=== PATIENT | female | born 1970 | race Caucasian/White ===

== ENCOUNTER → 2021-03-05 08:44 | Outpatient (BNVA) | payer OTHER, MEDICAID, SELFPAY | PROVIDERS: Family Provider Nurse Practitioner; PCP Family Medicine; Visit Provider Internal Medicine Rheumatology | DX: M79.7 Fibromyalgia (principal); M19.90 Unspecified osteoarthritis, unspecified site; R76.8 Other specified abnormal immunological findings in serum; Z79.899 Other long term (current) drug therapy; Z11.59 Encounter for screening for other viral diseases; Z11.1 Encounter for screening for respiratory tuberculosis; E03.9 Hypothyroidism, unspecified; E55.9 Vitamin D deficiency, unspecified | CPT/HCPCS: 99204 ==

== ENCOUNTER 2021-03-05 10:31 | Outpatient (CLI) | payer OTHER, SELFPAY ==
[2021-03-05 11:12] LABS: Bilirubin Urine Neg (Negative); Blood Urine Neg (Negative); Glucose Urine UA Norm (Normal); Ketones Urine Negative (Negative); Leukocyte Esterase Urine Negative (Negative); Nitrate Urine Negative (Negative); Protein Urine Neg (Negative); Urine Appearance Clear (CLEAR); Urine Color Yellow (Yellow); Urobilinogen Urine Norm (Negative); pH Urine 7 (5-7)
[2021-03-05 11:17] LABS: Add Urine Culture? No; Bacteria Urine TRACE /hpf; Squamous Epithelial Cell Urine 0-4 /hpf (0-5)
[2021-03-05 12:02] LABS: Urine Creatinine 69 mg/dL (28-217); Urine Protein Random 4 mg/dL
[2021-03-05 12:39] LABS: Hepatitis B Core AB, Total Non-Reactive (Nonreactive); Hepatitis B Surface Antigen Non-Reactive (Nonreactive); Hepatitis C Virus Antibody Non-Reactive (Nonreactive)
[2021-03-07 12:12] LABS: COMPLEMENT COMPONENT C3C 176 mg/dL (83-193); COMPLEMENT COMPONENT C4C 38 mg/dL (15-57)
[2021-03-07 13:22] LABS: COMPLEMENT, TOTAL (CH50) >60 U/mL (31-60)
[2021-03-07 15:22] LABS: Quantiferon Nil 0.02 IU/mL; Quantiferon Plus TB1 0.01 IU/mL; Quantiferon Plus TB2 0.01 IU/mL; Quantiferon TB Gold NEGATIVE (NEGATIVE)
[2021-03-10 13:53] LABS: ANA SCREEN, IFA NEGATIVE (NEGATIVE)
[2021-03-10 15:28] LABS: CENTROMERE B ANTIBODY <1.0 NEG AI (<1.0 NEG); JO-1 ANTIBODY <1.0 NEG AI (<1.0 NEG); RNP ANTIBODY <1.0 NEG AI (<1.0 NEG); SCL-70 ANTIBODY <1.0 NEG AI (<1.0 NEG); SJOGREN'S ANTIBODY (SS-A) <1.0 NEG AI (<1.0 NEG); SM ANTIBODY <1.0 NEG AI (<1.0 NEG); SS-B <1.0 NEG AI (<1.0 NEG)
[2021-03-11 16:28] LABS: THYROID PEROXIDASE ANTIBODIES 1 IU/mL (<9)
[2021-03-12 22:53] LABS: DNA AB (DS) CRITHIDIA,IFA NEGATIVE (NEGATIVE)
== END 2021-03-05 10:32 | disposition home or self-care (01) ==
LOC: LAB 10:47
PROVIDERS: PCP Family Medicine; Visit Provider Internal Medicine Rheumatology
DX: Z79.899 Other long term (current) drug therapy (principal); R76.8 Other specified abnormal immunological findings in serum; M19.90 Unspecified osteoarthritis, unspecified site; Z11.59 Encounter for screening for other viral diseases
CPT/HCPCS: 36415; 81001; 82570; 84156; 86160; 86162; 86235; 86255; 86376; 86480; 86704; 86803; 87340

== ENCOUNTER → 2021-05-14 08:54 | Outpatient (BNVA) | payer OTHER, MEDICAID, SELFPAY | PROVIDERS: PCP Family Medicine; Visit Provider Internal Medicine Rheumatology | DX: M25.50 Pain in unspecified joint (principal); M79.7 Fibromyalgia; R76.8 Other specified abnormal immunological findings in serum; Z79.899 Other long term (current) drug therapy; M54.31 Sciatica, right side; E03.9 Hypothyroidism, unspecified | CPT/HCPCS: 99214 ==

== ENCOUNTER 2021-07-28 20:12 | Emergency (ER) | payer MEDICAID, SELFPAY ==
[2021-07-28 20:34] VITALS: BP 148/77; PULSE 90; RESP 18; TEMP 37.5; O2SAT 97; BMI 54.3
--- NOTE | 2021-07-28 21:13 | XRR_ITS ---
PROCEDURE INFORMATION: Exam: XR Chest Exam date and time: 07/28/2021 9:13 PM Age: 50 years old Clinical indication: Shortness of breath; Additional info: Short of breath TECHNIQUE: Imaging protocol: XR of the chest. Views: 1 view. COMPARISON: No relevant prior studies available. FINDINGS: Lungs: Hypoinflated lungs. No consolidation. Pleural spaces: Unremarkable. No pleural effusion. No pneumothorax. Heart/Mediastinum: Unremarkable. No cardiomegaly. Bones/joints: Unremarkable. XR/XR chest 1V portable [id number] IMPRESSION: No acute findings.
[2021-07-28] MEDS: ondansetron 4 MG Tablet PO (21:18)
--- NOTE | 2021-07-28 21:34 | ED_ITS ---
HPI - SOB/Dyspnea General: Chief Complaint: Shortness of Breath/Dyspnea Stated Complaint: COVID POSITIVE Time Seen by Provider: 07/28/21 21:30 History of Present Illness: HPI Narrative: 50-year-old female comes in today with increasing shortness of breath. Patient has been ill since 20 July, she tested positive on 22 July for COVID-19. Patient appears mildly unwell but not toxic. Patient does have some increased respiratory effort. Patient appears in no pain. Patient does report shortness of breath, chest discomfort, nausea vomiting, diarrhea, and other symptoms such as loss of taste and smell. Associated symptoms: Reports chest pain Review of Systems General: Reports: 10 or more systems reviewed and unremarkable except in HPI and below Card: Reports: chest pain Resp: Reports: dyspnea PFSH ED PFSH: Medical History Fibromyalgia High risk medication use Hodgkin disease Hypothyroid Immunization counseling Inflammatory arthritis Joint pain Muscle pain Positive TAVIA (antinuclear antibody) Thyroid disease Vitamin D deficiency Surgical History History of delivery History of shoulder surgery left x3 History of tubal ligation Family History Other Cancer Diabetes Hyperlipidemia Hypertension Rheumatoid arthritis Denies family history of Lupus CAD (coronary artery disease) Chronic kidney disease (CKD) Lung disease Stroke Social History Smoking and tobacco status: never smoked Alcohol intake: never History of recent travel: No Physical Exam Const: COMMON NORMALS: no acute distress and patient oriented x3 GENERAL APPEARANCE: cooperative HENMT: COMMON NORMALS: normocephalic and Normal external nose present HEAD & SCALP: normal to inspection and normocephalic NOSE: Normal external nose present and Nasal discharge present MOUTH: Normal oral and palatal mucosa present Eye: GENERAL EYE: appearance normal, both eyes and all related structures Neck/C-Spine: COMMON NORMALS: full ROM Lymph: LYMPHATIC: no lymphadenopathy noted Chest: COMMONS NORMALS: normal inspection of the chest Resp: COMMON NORMALS: normal respiratory effort EFFORT & INSPECTION: Yes able to speak in complete sentences AUSCULTATION: crackles Laterality: bilateral and posterior Cardio: COMMON NORMALS: regular rate and regular rhythm RATE: regular rate RHYTHM: regular rhythm GI: COMMON NORMALS: non-tender Back/Pelvis: COMMON NORMALS: thoracic and lumbar spine normal to inspection Extremity: COMMON NORMALS: normal to inspection Neuro: COMMON NORMALS: patient oriented x3 and moves all extremities Psych: COMMON NORMALS: mental status grossly normal and cooperative Skin: COMMON NORMALS: no rashes or lesions noted GENERAL SKIN EXAM: no rashes or lesions noted Course Vital Signs: Vital signs: Vital Signs Temperature 99.5 F 07/28/21 20:34 Pulse Rate 107 H 07/28/21 22:55 Respiratory Rate 21 H 07/28/21 22:56 Blood Pressure 148/77 07/28/21 20:34 Pulse Oximetry 93 07/28/21 23:00 MDM - SOB/Dyspnea MDM Narrative: Medical decision making narrative: Patient has been ill with COVID-19 for the last 7-8 days. Patient reports a positive COVID-19 exam from her primary care office. Patient's sisters have also been ill with the illness. Patient reports some mild chest discomfort. Exam notes lungs with good air movement throughout but occasional crackle in bilateral bases. Heart rate is regular but slightly tachycardic at 100. Patient is morbidly obese. No edema is noted in the extremities. Vital signs are normal. Differential diagnosis includes COVID-19, pneumonia, pulmonary embolism. Chest x-ray indicated no pneumonia at this time. Laboratory values had a slightly elevation in the D- dimer at 0.65, CRP was slightly elevated at 50, remainder of labs were unremarkable. Patient was given 1 L of IV fluids started on albuterol inhaler, and given 1 dose of 10 mg of dexamethasone. Patient was given Zofran and Reglan for complaints of nausea. Patient was able to tolerate oral fluids. We will set patient up for monoclonal antibodies. I did review with patient risks and benefits for the medication. She agreed to the plan. [facility] Lab Data: Labs: Lab Results 07/28/21 07/28/21 07/28/21 Range/Units 22:13 22:13 22:13 WBC 5.3 (4.0-10.0) 10^3/ uL RBC 4.52 (4.1-5.3) 10^6/u L Hgb 13.3 (11.5-15.3) g/dL Hct 40.0 (37.0-47.0) % MCV 88.5 (81-99) fl MCH 29.4 (28.0-34.0) pg MCHC 33.3 (30.0-36.0) g/dL RDW 12.3 (12.1-15.1) % Plt Count 209 (130-400) 10^3/c mm MPV 10.0 (7.4-10.4) fL Neut % (Auto) 64.1 % Lymph % (Auto) 28.4 % Slope % (Auto) 6.7 % Eos % (Auto) 0.2 % Baso % (Auto) 0.2 % Neut # (Auto) 3.37 (1.8-7.7) 10^3/u L Lymph # (Auto) 1.5 (0.8-4.8) 10^3/u L Slope # (Auto) 0.4 (0.2-0.9) 10^3/u L Eos # (Auto) 0.0 (0.0-0.8) 10^3/u L Baso # (Auto) 0.0 (0.0-0.1) 10^3/u L Nucleated RBC % (a uto) 0 % Nucleated RBCs # 0.0 /100WBC D-Dimer 0.65 H (0-0.59) ug/mIFE U Sodium 139 (136-145) mmol/L Potassium 3.6 (3.5-5.1) mmol/L Chloride 100 (98-107) mmol/L Carbon Dioxide 26 (22-29) mmol/L Anion Gap 16.6 (5-19) BUN 6 (6-20) mg/dL Creatinine 0.6 (0.5-0.9) mg/dL GFR Calculation 105.4 (90-130) mL/min Glucose 117 H (65-115) mg/dL Calculated Osmolal ity 287 (285-295) mOsm/k g Lactic Acid (0.5-2.2) mmol/L Calcium 8.7 (8.5-10.5) mg/dL Total Bilirubin 0.3 (0.15-1.2) mg/dL AST 55 H (0-32) U/L ALT 36 H (0-33) U/L Alkaline Phosphata se 102 (35-105) IU/L C-Reactive Protein 50.4 H (0.0-4.9) mg/L NT-Pro-B Natriuret Pep 63 (0-125) pg/mL Total Protein 7.7 (6.6-8.7) g/dL Albumin 3.8 (3.5-5.2) g/dL Globulin 3.9 (1.3-4.6) g/dL 07/28/21 Range/Units 22:13 WBC (4.0-10.0) 10^3/ uL RBC (4.1-5.3) 10^6/u L Hgb (11.5-15.3) g/dL Hct (37.0-47.0) % MCV (81-99) fl MCH (28.0-34.0) pg MCHC (30.0-36.0) g/dL RDW (12.1-15.1) % Plt Count (130-400) 10^3/c mm MPV (7.4-10.4) fL Neut % (Auto) % Lymph % (Auto) % Slope % (Auto) % Eos % (Auto) % Baso % (Auto) % Neut # (Auto) (1.8-7.7) 10^3/u L Lymph # (Auto) (0.8-4.8) 10^3/u L Slope # (Auto) (0.2-0.9) 10^3/u L Eos # (Auto) (0.0-0.8) 10^3/u L Baso # (Auto) (0.0-0.1) 10^3/u L Nucleated RBC % (a uto) % Nucleated RBCs # /100WBC D-Dimer (0-0.59) ug/mIFE U Sodium (136-145) mmol/L Potassium (3.5-5.1) mmol/L Chloride (98-107) mmol/L Carbon Dioxide (22-29) mmol/L Anion Gap (5-19) BUN (6-20) mg/dL Creatinine (0.5-0.9) mg/dL GFR Calculation (90-130) mL/min Glucose (65-115) mg/dL Calculated Osmolal ity (285-295) mOsm/k g Lactic Acid 1.2 (0.5-2.2) mmol/L Calcium (8.5-10.5) mg/dL Total Bilirubin (0.15-1.2) mg/dL AST (0-32) U/L ALT (0-33) U/L Alkaline Phosphata se (35-105) IU/L C-Reactive Protein (0.0-4.9) mg/L NT-Pro-B Natriuret Pep (0-125) pg/mL Total Protein (6.6-8.7) g/dL Albumin (3.5-5.2) g/dL Globulin (1.3-4.6) g/dL EKG Data^: EKG 1: Attestation: I personally reviewed and interpreted this EKG as follows: (2253, EKG shows a sinus tachycardia regular rate at 101, no ST elevation, no ectopy, no available earlier exam is to compare at this time.) Discharge Plan Discharge Patient Disposition: Home Clinical Impression: COVID-19 Condition: Stable Prescriptions: New promethazine-DM 6.25-15 mg/5 mL syrup 5 ml PO Q6H PRN (Reason: cough, or nausea) Qty: 118 RF: 0 No Action calcium carbonate [Calcium 500] 500 mg calcium (1,250 mg) tablet,chewable 500 mg PO DAILY RF: 0 sennosides-docusate sodium [Senna Plus] 8.6-50 mg tablet 1 tab-cap PO DAILY RF: 0 prednisone 10 mg tablet See Rx Instructions PO .COMPLEX PRN (Reason: joint pain) Qty: 30 RF: 1 duloxetine 60 mg capsule,delayed release(DR/EC) 60 mg PO DAILY Qty: 30 RF: 3 gabapentin 300 mg capsule 300 mg PO TID Qty: 90 RF: 3 leflunomide 20 mg tablet 20 mg PO DAILY Qty: 30 RF: 3 hydroxychloroquine 200 mg tablet 200 mg PO BID Qty: 60 RF: 3 prednisone 5 mg tablet 7.5 mg PO DAILY Qty: 45 RF: 3 pantoprazole 40 mg tablet,delayed release (DR/EC) See Rx Instructions PO DAILY Qty: 30 RF: 3 levothyroxine 137 mcg capsule 137 mcg PO DAILY RF: 0 metoprolol tartrate 25 mg tablet 25 mg PO DAILY RF: 0 rizatriptan 5 mg tablet See Rx Instructions PO .COMPLEX RF: 0 meloxicam 15 mg tablet 15 mg PO DAILY RF: 0 Discharge Orders: Discharge ED (Routine); Ordered 07/28/21 Ordered By: Raleigh Whitfield Other Ambulatory Orders: Request for MCA (Routine) Timeframe: 1 Day Facility: [facility] - Location: Outpatient [facility] Services Ordered By: Raleigh Whitfield Referrals: Farnaz Wiggins DO [Primary Care Provider] - Discharge Diet: Usual diet Discharge Activity: Increase activity as tolerated Patient Instructions: Viral Pneumonia (ED), Opioid Safety Activity Restrictions/Additional Instructions: Continue with albuterol inhaler 2 puffs every 4 hours as needed for cough, shortness of breath. Use Promethazine DM as needed for nausea or persistent coughing. Case management will contact you regarding your monoclonal antibody infusion. Drink plenty of fluids. Stay well-hydrated. Follow-up with primary care for further instruction. Return to the ER for pulse oxygen saturations dropping below 90%, inability to hold fluids down, or new concerns. 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
[2021-07-28 22:19] LABS: Basophils % 0.2 %; Eosinophils % 0.2 %; Hemoglobin 13.3 g/dL (11.5-15.3); Lymphocytes # 1.5 10^3/uL (0.8-4.8); Lymphocytes % 28.4 %; Mean Corpuscular HGB Conc 33.3 g/dL (30.0-36.0); Mean Corpuscular Hemoglobin 29.4 pg (28.0-34.0); Mean Corpuscular Volume 88.5 fl (81-99); Monocytes # 0.4 10^3/uL (0.2-0.9); Monocytes % 6.7 %; Neutrophils # 3.37 10^3/uL (1.8-7.7); Neutrophils % 64.1 %; Nucleated Red Blood Cells % 0 %; Platelet Count 209 10^3/cmm (130-400); Red Blood Count 4.52 10^6/uL (4.1-5.3); Red Cell Distribution Width 12.3 % (12.1-15.1); White Blood Count 5.3 10^3/uL (4.0-10.0)
[2021-07-28 22:34] LABS: D Dimer 0.65 ug/mIFEU (0-0.59)
--- NOTE | 2021-07-28 22:38 | ECG_ITS ---
[facility] Test Date: 2021-07-28 Pat Name: Gisela Neville Department: Room: Gender: Female Net Developer Contract: : [id number] Requested By: Raleigh Acuna Order Number: [id number] Reading MD: RUPAL WEI Measurements Intervals [place] Rate: 101 P: 37 [place]: 136 QRS: 40 QRSD: 88 T: 49 QT: 340 QTc: 442 Interpretive Statements SINUS TACHYCARDIA NONSPECIFIC T-WAVE ABNORMALITY ABNORMAL RHYTHM ECG No previous ECG available for comparison Electronically Signed On 07-29-2021 21:05:02 CDT by RUPAL WEI [email or web address]
[2021-07-28 22:42] LABS: Lactic Sepsis W/Reflex 1.2 mmol/L (0.5-2.2)
[2021-07-28] MEDS: sodium chloride 0.9% 1,000 ML 999 ML IV (22:42)
[2021-07-28] MEDS: metoclopramide 5 mg/mL SDV 2 mL 10 MG IVP (22:44)
[2021-07-28] MEDS: dexamethasone 10 mg/mL INJ IVP (22:50)
[2021-07-28 22:51] LABS: Alanine Aminotransferase 36 U/L (0-33); Albumin Level 3.8 g/dL (3.5-5.2); Alkaline Phosphatase 102 IU/L (35-105); Anion Gap 16.6 (5-19); Aspartate Amino Transferase 55 U/L (0-32); Blood Urea Nitrogen 6 mg/dL (6-20); C Reactive Protein 50.4 mg/L (0.0-4.9); Calcium 8.7 mg/dL (8.5-10.5); Carbon Dioxide 26 mmol/L (22-29); Chloride 100 mmol/L (98-107); Globulin 3.9 g/dL (1.3-4.6); Glomerular Filtration Rate 105.4 mL/min (90-130); Glucose 117 mg/dL (65-115); NT Pro B Type Natriuretic Pept 63 pg/mL (0-125); Osmolality Calculated 287 mOsm/kg (285-295); Potassium 3.6 mmol/L (3.5-5.1); Sodium 139 mmol/L (136-145); Total Bilirubin 0.3 mg/dL (0.15-1.2); Total Protein 7.7 g/dL (6.6-8.7)
[2021-07-28] MEDS: albuterol 8 gm MDI 2 PUFF INHALATION (22:54)
[2021-07-28 22:55] VITALS: PULSE 107; RESP 26; O2SAT 98
[2021-07-28 22:56] VITALS: RESP 21; O2SAT 97
[2021-07-28 23:00] VITALS: O2SAT 93
[2021-07-28] MEDS: acetaminophen 500 mg Tablet 1000 MG PO (23:11)
[2021-07-28 23:53] VITALS: PULSE 102; O2SAT 92
[2021-07-29 00:12] VITALS: O2SAT 93
[2021-07-29 00:41] VITALS: BP 156/85; PULSE 99; RESP 22; O2SAT 96
== END 2021-07-29 00:42 | disposition home or self-care (01) ==
PROVIDERS: Emergency Medicine; Emergency Provider Nurse Practitioner Family; PCP Family Medicine
DX: U07.1 COVID-19 (principal); E03.9 Hypothyroidism, unspecified; E66.01 Morbid (severe) obesity due to excess calories; Z68.43 Body mass index [BMI] 50.0-59.9, adult
CPT/HCPCS: 71045; 80053; 83605; 83880; 85025; 85378; 86140; 93005; 94640; 96361; 96374; 99284; J1100; J2765; J3535; J7030; Q0162

== ENCOUNTER 2024-07-17 20:00 | Outpatient (CLI) | payer MEDICAID, SELFPAY | END 2024-07-17 20:01 | disposition home or self-care (01) | LOC: SLEEP 23:50 | PROVIDERS: PCP Family Medicine | DX: G47.33 Obstructive sleep apnea (adult) (pediatric) (principal) | CPT/HCPCS: 95810 ==